=== PATIENT | female | born 1980 | race Two or more races ===

== ENCOUNTER 2017-07-13 12:58 | Emergency (ER) | payer BC, MEDICAID ==
[~2017-07-13] VITALS: Ht 160 cm; Wt 56.7 kg
[2017-07-13 15:07] VITALS: BP 110/63
[2017-07-13] MEDS ORDERED: IBUPROFEN 800 MG TAB PO ONE ×2 (15:43→15:45)
== END 2017-07-13 15:55 | disposition home or self-care (01) ==
LOC: ER 12:58
DX: H60.92 Unspecified otitis externa, left ear (principal)